=== PATIENT | female | born 1990 | race Caucasian/White ===

== ENCOUNTER 2019-04-02 12:59 | Inpatient (IN) ==
[2019-04-02] MEDS ORDERED: GLUCAGON 1 MG VIAL IM PRN (15:17)
[2019-04-02] MEDS ORDERED: AMPICILLIN INJ 2,000 MG in SODIUM CHLORIDE 0.9% 100 ML IV ONE (15:19)
[2019-04-02] MEDS: LACTATED RINGERS 1,000 ML IV SCH ×2 (15:35→18:46)
[2019-04-02 15:48] LABS: Basophils % 0.1 % (0.0-0.8); Eosinophils # 0.1 10*3/uL (0.0-0.87); Eosinophils % 0.8 % (0.00-10.9); Hematocrit 31.1 VOL% (35.7-47.0); Hemoglobin 9.9 GM/DL (12.0-16.0); Immature Granulocytes % 1.9 %; Immature Granulocytes Absolute 0.25 #; Lymphocytes # 2.1 10*3/uL (1.4-4.0); Mean Corpuscular HGB Conc 31.8 GM/DL (32-36); Mean Corpuscular Volume 83.8 FL (87-102); Mean Platelet Volume 10.9 FL (9.6-12.0); Monocytes % 7.5 % (1.7-12.7); Neutrophils % 73.7 % (38.7-73.9); Platelet Count 305 T/CUMM (130-400); Red Blood Count 3.71 MC/CUMM (3.8-5.5); Red Cell Distribution Width 14.9 % (9.3-17.3)
[2019-04-02 15:55] LABS: Albumin 3.2 G/DL (3.4-5.0); Bilirubin,Total 0.4 MG/DL (0.2-1.0); Calcium 8.8 MG/DL (8.5-10.1); Osmolality,Calculated 272.7 MOS/KG (273-304); Total Protein 7.3 G/DL (6.4-8.3)
[2019-04-02] MEDS ORDERED: TERBUTALINE 1 MG/1 ML VIAL SUBCUT ONE (16:14)
[2019-04-02] MEDS: ACETAMINOPHEN 325 MG TABLET PO PRN (17:56)
[2019-04-02] MEDS: ONDANSETRON 4 MG/2 ML VIAL IV PRN (17:58)
[2019-04-02] MEDS: BUTORPHANOL 2 MG/ML VIAL IV PRN ×2 (18:05→21:19)
[2019-04-02] MEDS ORDERED: GENTAMICIN INJ 160 MG in SODIUM CHLORIDE 0.9% 100 ML IV ONE (20:00)
[2019-04-02] MEDS: AMPICILLIN INJ 1,000 MG in SODIUM CHLORIDE 0.9% 100 ML IV SCH ×2 (20:00→23:45)
[2019-04-03] MEDS: ONDANSETRON 4 MG/2 ML VIAL IV PRN ×3 (03:12→17:34)
[2019-04-03] MEDS: BUTORPHANOL 2 MG/ML VIAL IV PRN ×3 (03:12→11:07)
[2019-04-03] MEDS: LACTATED RINGERS 1,000 ML IV SCH ×4 (03:34→17:55)
[2019-04-03] MEDS: AMPICILLIN INJ 1,000 MG in SODIUM CHLORIDE 0.9% 100 ML IV SCH ×5 (03:52→19:43)
[2019-04-03] MEDS ORDERED: OXYTOCIN/LR 20 UNIT/1,000 ML BAG IV SCH (04:30)
[2019-04-03] MEDS: GENTAMICIN INJ 110 MG in SODIUM CHLORIDE 0.9% 100 ML IV SCH ×3 (04:36→20:43)
[2019-04-03] MEDS ORDERED: ePHEDrine 50 MG/ML AMP IV PRN (12:40)
[2019-04-03] MEDS ORDERED: CITRIC ACID/SODIUM CITRATE 30 ML UDCUP PO ONE (12:40)
[2019-04-03] MEDS ORDERED: FAMOTIDINE 20 MG/2 ML VIAL IV ONE (12:40)
[2019-04-03] MEDS ORDERED: LACTATED RINGERS 1,000 ML IV ONE (12:40)
[2019-04-03] MEDS ORDERED: diphenhydrAMINE 50 MG/1 ML VIAL IV PRN ×2 (12:42)
[2019-04-03] MEDS ORDERED: NALOXONE 0.4 MG/ML VIAL IV PRN (12:42)
[2019-04-03] MEDS ORDERED: hydrOXYzine HCL 25 MG/1 ML VIAL IM PRN (12:42)
[2019-04-03] MEDS ORDERED: PROMETHAZINE 25 MG/1 ML VIAL IM ONE (12:42)
[2019-04-03] MEDS: fentaNYL 2 MCG/ROPIV 0.2% EPID 100 ML EPIDURAL SCH ×3 (14:14→23:35)
[2019-04-03 15:29] LABS: Apearance,Urine CLEAR (Clear); Bilirubin,Urine Negative (Negative); Blood, Urine Negative (Negative); Glucose,Urine (UA) Negative (Negative); Ketones,Urine Negative (Negative); Mucus,Urine Occasional /LPF (Occasional); Nitrite,Urine Negative (Negative); Protein,Urine Negative; Urine Color Straw (Yellow); Urine Specific Gravity 1.008 (1.001-1.035); Urine Urobilinogen < 2.0 EU/DL (0.2-1.0)
[2019-04-03] MEDS ORDERED: METHYLERGONOVINE 0.2 MG/1 ML AMP ONE (21:56)
[2019-04-03] MEDS ORDERED: TRANEXAMIC ACID 1,000 MG/10 ML VIAL ONE (21:56)
[2019-04-03] MEDS ORDERED: miSOPROStoL 200 MCG TABLET ONE (21:56)
[2019-04-03] MEDS ORDERED: OXYTOCIN/LR 20 UNIT/1,000 ML BAG IV ONE (21:56)
[2019-04-03] MEDS ORDERED: CARBOPROST TROMETHAMINE 250 MCG/ML AMP IM ONE (21:57)
[2019-04-03] MEDS ORDERED: BISACODYL 10 MG SUPP RECTAL PRN (22:50)
[2019-04-03] MEDS ORDERED: BENZOCAINE 20%/MENTHOL 0.5% SPRAY 56 GM CAN TOP PRN (22:50)
[2019-04-03] MEDS ORDERED: HYDROCORTISONE 2.5% RECTAL CREAM 30 GM TUBE TOP PRN (22:50)
[2019-04-03] MEDS ORDERED: LANOLIN 50% CREAM 0.3 OZ TUBE TOP PRN (22:50)
[2019-04-03] MEDS ORDERED: WITCH HAZEL PADS 100/JAR TOP PRN (22:50)
[2019-04-03] MEDS ORDERED: ACETAMINOPHEN/CODEINE 300-30 MG TABLET PO PRN (22:52)
[2019-04-03] MEDS: IBUPROFEN 800 MG TABLET PO PRN (23:24)
[2019-04-04] MEDS: BUTORPHANOL 2 MG/ML VIAL IV PRN (00:07)
[2019-04-04] MEDS: ONDANSETRON 4 MG/2 ML VIAL IV PRN (00:13)
[2019-04-04 00:45] LABS: Basophils % 0.2 % (0.0-0.8); Eosinophils # 0.1 10*3/uL (0.0-0.87); Eosinophils % 0.2 % (0.00-10.9); Hematocrit 23.2 VOL% (35.7-47.0); Hemoglobin 7.2 GM/DL (12.0-16.0); Immature Granulocytes % 1.4 %; Immature Granulocytes Absolute 0.31 #; Lymphocytes # 4.7 10*3/uL (1.4-4.0); Lymphocytes % 20.3 % (21.3-54.2); Mean Corpuscular Volume 85.3 FL (87-102); Mean Platelet Volume 11.2 FL (9.6-12.0); Neutrophils % 70.9 % (38.7-73.9); Platelet Count 320 T/CUMM (130-400); Red Blood Count 2.72 MC/CUMM (3.8-5.5); White Blood Count 22.9 T/CUMM (4-12)
[2019-04-04] MEDS ORDERED: SODIUM CHLORIDE 0.9% 1,000 ML IV PRN ×5 (01:09→10:19)
[2019-04-04] MEDS: LACTATED RINGERS 1,000 ML IV SCH ×4 (03:08→21:07)
[2019-04-04] MEDS ORDERED: SEVOFLURANE 1 UNIT/15 MINUTE INH ONE ×2 (03:17→08:50)
[2019-04-04] MEDS ORDERED: LIDOCAINE 2% 5 ML VIAL ONE (03:17)
[2019-04-04] MEDS ORDERED: PROPOFOL 200 MG/20 ML VIAL IV ONE (03:17)
[2019-04-04] MEDS ORDERED: MIDAZOLAM 2 MG/2 ML VIAL ONE ×2 (03:18→11:47)
[2019-04-04] MEDS ORDERED: PHENYLEPHRINE 10 MG/1 ML VIAL IV ONE (03:18)
[2019-04-04] MEDS ORDERED: fentaNYL 100 MCG/2 ML VIAL ONE ×2 (03:18→08:51)
[2019-04-04] MEDS ORDERED: ETOMIDATE 40 MG/20 ML VIAL IV ONE (03:18)
[2019-04-04] MEDS ORDERED: MIDAZOLAM 10 MG/2 ML VIAL ONE ×4 (03:18→12:24)
[2019-04-04] MEDS ORDERED: ROCURONIUM 100 MG/10 ML VIAL IV ONE ×3 (03:19→12:24)
[2019-04-04] MEDS ORDERED: SODIUM CHLORIDE 0.9% 1,000 ML IV ONE ×3 (03:19→12:27)
[2019-04-04] MEDS ORDERED: SUCCINYLCHOLINE 200 MG/10 ML VIAL ONE (03:19)
[2019-04-04] MEDS ORDERED: PHENYLEPHRINE 1 MG/10 ML SYRINGE IV ONE ×2 (03:19→08:51)
[2019-04-04] MEDS ORDERED: SODIUM CHLORIDE 0.9% 250 ML IV ONE (03:19)
[2019-04-04 03:30] LABS: Lymphocytes 15 % (20-55); Platelet Estimate Normal; Polychromasia Few; Segmented Neutrophils 80 % (50-85); Total Cells Counted 100
[2019-04-04 03:37] LABS: Basophils % 0.2 % (0.0-0.8); Eosinophils % 0.1 % (0.00-10.9); Hematocrit 28.1 VOL% (35.7-47.0); Hemoglobin 9.1 GM/DL (12.0-16.0); Immature Granulocytes % 1.5 %; Immature Granulocytes Absolute 0.29 #; Lymphocytes # 1.1 10*3/uL (1.4-4.0); Lymphocytes % 5.6 % (21.3-54.2); Mean Corpuscular HGB Conc 32.4 GM/DL (32-36); Mean Corpuscular Volume 88.4 FL (87-102); Mean Platelet Volume 10.5 FL (9.6-12.0); Monocytes % 7.1 % (1.7-12.7); Neutrophils % 85.5 % (38.7-73.9); Platelet Count 129 T/CUMM (130-400); Red Blood Count 3.18 MC/CUMM (3.8-5.5); Red Cell Distribution Width 15.3 % (9.3-17.3); White Blood Count 19.7 T/CUMM (4-12)
[2019-04-04] MEDS: PROPOFOL 1,000 MG/100 ML BOTTLE IV SCH ×4 (03:45→23:12)
[2019-04-04 03:46] LABS: ABG Base Excess -3.7 MMOL/L (-2.5-2.5); ABG HCO3 21.3 MMOL/L (20-26); ABG PCO2 34.4 MM HG (35-48); ABG PH 7.386 (7.35-7.45)
[2019-04-04] MEDS ORDERED: HEPARIN/NACL 0.9% 2 UNITS/ML 2,000 ML IV ONE (03:50)
[2019-04-04 03:52] LABS: Calcium 6.7 MG/DL (8.5-10.1); Osmolality,Calculated 277.4 MOS/KG (273-304)
[2019-04-04 03:56] LABS: PT Patient Result 11.1 SECS (9.6-12.2); Partial Thromboplastin Time 30.3 SECS (20.8-36.0)
[2019-04-04] MEDS ORDERED: fentaNYL 100 MCG/2 ML VIAL IV ONE (04:46)
[2019-04-04] MEDS ORDERED: HEPARIN/NACL 0.9% 2 UNITS/ML 1,000 ML IV ONE (05:51)
[2019-04-04] MEDS: OXYTOCIN/LR 20 UNIT/1,000 ML BAG IV ONE ×2 (06:52→15:16)
[2019-04-04] MEDS ORDERED: AMPICILLIN INJ 1,000 MG in SODIUM CHLORIDE 0.9% 100 ML IV ONE (06:55)
[2019-04-04] MEDS ORDERED: MAGNESIUM SULF RIDER 100 ML IV ONE (07:08)
[2019-04-04] MEDS ORDERED: AMPICILLIN 1,000 MG VIAL ONE (07:12)
[2019-04-04 07:27] LABS: Basophils % 0.2 % (0.0-0.8); Eosinophils % 0.1 % (0.00-10.9); Hemoglobin 8.8 GM/DL (12.0-16.0); Immature Granulocytes % 1.1 %; Immature Granulocytes Absolute 0.17 #; Lymphocytes # 1.4 10*3/uL (1.4-4.0); Lymphocytes % 8.6 % (21.3-54.2); Mean Corpuscular HGB Conc 32.6 GM/DL (32-36); Mean Corpuscular Volume 87.4 FL (87-102); Mean Platelet Volume 10.3 FL (9.6-12.0); Monocytes % 6.9 % (1.7-12.7); Neutrophils % 83.1 % (38.7-73.9); Platelet Count 160 T/CUMM (130-400); Red Blood Count 3.09 MC/CUMM (3.8-5.5); Red Cell Distribution Width 15.1 % (9.3-17.3); White Blood Count 15.7 T/CUMM (4-12)
[2019-04-04] MEDS ORDERED: GENTAMICIN INJ 110 MG in SODIUM CHLORIDE 0.9% 100 ML IV ONE (07:30)
[2019-04-04 07:41] LABS: Calcium 9.4 MG/DL (8.5-10.1)
[2019-04-04] MEDS ORDERED: INFLUENZA VIRUS VACCINE 0.5 ML SYRINGE IM ONE (08:00)
[2019-04-04] MEDS ORDERED: PHENYLEPHRINE DRIP 20 MG/250 ML PREMIX IV ONE (08:50)
[2019-04-04] MEDS ORDERED: KETAMINE 500 MG/10 ML VIAL ONE ×2 (08:50→12:24)
[2019-04-04] MEDS ORDERED: CALCIUM CHLORIDE 1,000 MG/10 ML VIAL IV ONE ×3 (08:50→10:52)
[2019-04-04] MEDS ORDERED: ACETAMINOPHEN 1,000 MG/100 ML VIAL IV ONE (08:51)
[2019-04-04] MEDS ORDERED: LACTATED RINGERS 1,000 ML IV ONE ×2 (08:51→12:27)
[2019-04-04] MEDS ORDERED: CALCIUM GLUCONATE 1,000 MG in SODIUM CHLORIDE 0.9% 100 ML IV ONE (09:30)
[2019-04-04] MEDS ORDERED: KETOROLAC 30 MG/1 ML VIAL IV ONE ×2 (09:44→15:30)
[2019-04-04] MEDS ORDERED: ALBUMIN 25% 12.5 GM in PREMIX 1 EACH IV STA (09:50)
[2019-04-04] MEDS ORDERED: ALBUMIN 5% 12.5 GM/250 ML VIAL IV ONE (09:50)
[2019-04-04] MEDS ORDERED: VECURONIUM 10 MG VIAL IV ONE ×2 (09:54→09:55)
[2019-04-04] MEDS ORDERED: MIDAZOLAM 10 MG/2 ML VIAL IV ONE (09:55)
[2019-04-04] MEDS ORDERED: TRANEXAMIC ACID 1,000 MG/10 ML VIAL ONE ×2 (10:11→10:53)
[2019-04-04] MEDS ORDERED: MICROFIBRILLAR COLLAGEN POWDER 1 GM CAN TOP ONE (10:17)
[2019-04-04 10:19] LABS: ABG Base Excess -7.1 MMOL/L (-2.5-2.5); ABG HCO3 18.5 MMOL/L (20-26); ABG Oxygen Saturation 99.8 % (95-100); ABG PCO2 39.3 MM HG (35-48); ABG PH 7.289 (7.35-7.45); ABG TCO2 18.3 MMOL/L (23-27); Glucose Heart Surgery 144 MG/DL (74-106); PCO2 Patient Temp Arterial 39.3 MMHG; PH Patient Temp Arterial 7.289; Patient Temperature 37 CELCIUS; Potassium Heart/CVR 3.1 MMOL/L (3.5-5.1); Sodium Heart/CVR 138 MMOL/L (135-145)
[2019-04-04 10:20] LABS: Hemoglobin Heart Surgery 5.5 G/DL (12.0-16.0)
[2019-04-04 10:21] LABS: Hematocrit Heart Surgery 17.5 PERCENT (37-47)
[2019-04-04 10:28] LABS: Hematocrit 16.5 VOL% (35.7-47.0); Hemoglobin 5.3 GM/DL (12.0-16.0)
[2019-04-04 10:40] LABS: INR 1.1; PT Patient Result 12.3 SECS (9.6-12.2)
[2019-04-04 10:47] LABS: Partial Thromboplastin Time 43.9 SECS (20.8-36.0)
[2019-04-04] MEDS ORDERED: FAMOTIDINE 20 MG/2 ML VIAL IV ONE (10:47)
[2019-04-04] MEDS ORDERED: SODIUM BICARBONATE 50 MEQ/50 ML VIAL IV ONE (10:52)
[2019-04-04 11:09] LABS: ABG Base Excess -2.2 MMOL/L (-2.5-2.5); ABG HCO3 23.2 MMOL/L (20-26); ABG Oxygen Saturation 98.6 % (95-100); ABG PCO2 42.6 MM HG (35-48); ABG PH 7.354 (7.35-7.45); ABG PO2 484.6 MM HG (80-95); ABG TCO2 24.5 MMOL/L (23-27)
[2019-04-04 11:10] LABS: Hematocrit 23.5 VOL% (35.7-47.0); Hemoglobin 7.8 GM/DL (12.0-16.0)
[2019-04-04 11:20] LABS: INR 1.2; PT Patient Result 12.9 SECS (9.6-12.2); Partial Thromboplastin Time 29.4 SECS (20.8-36.0)
[2019-04-04] MEDS ORDERED: LORazepam 2 MG/1 ML VIAL ONE (11:48)
[2019-04-04] MEDS ORDERED: MIDAZOLAM 2 MG/2 ML VIAL IV ONE (12:00)
[2019-04-04] MEDS ORDERED: LORazepam 2 MG/1 ML VIAL IV ONE (12:00)
[2019-04-04] MEDS: HYDROmorphone 2 MG/1 ML VIAL IV PRN ×5 (13:25→19:36)
[2019-04-04] MEDS: DOCUSATE SODIUM 100 MG CAPSULE PO SCH ×2 (14:13→21:07)
[2019-04-04] MEDS: FERROUS SULFATE 325 MG TABLET PO SCH (14:14)
[2019-04-04] MEDS: MULTIVITAMIN (PRENATAL) TABLET PO SCH (14:14)
[2019-04-04] MEDS: CISATRACURIUM 200 MG in SODIUM CHLORIDE 0.9% 180 ML IV SCH (15:51)
[2019-04-04] MEDS ORDERED: cefTRIAXone 1,000 MG in SYRINGE 1 EACH IV ONE (16:01)
[2019-04-04 20:02] LABS: Hematocrit 23.7 VOL% (35.7-47.0); Hemoglobin 8.4 GM/DL (12.0-16.0)
[2019-04-04 20:23] LABS: Calcium 8.3 MG/DL (8.5-10.1); Osmolality,Calculated 276.3 MOS/KG (273-304)
[2019-04-04] MEDS ORDERED: MAGNESIUM SULF RIDER 2 GM in PREMIX 1 EACH IV PRN (20:33)
[2019-04-04] MEDS ORDERED: POTASSIUM CHLORIDE RIDER 10 MEQ in PREMIX 1 EACH IV PRN (20:33)
[2019-04-04] MEDS ORDERED: POTASSIUM CHLORIDE RIDER 200 ML IV ONE (21:32)
[2019-04-04] MEDS: KETOROLAC 15 MG/1 ML VIAL IV SCH (21:45)
[2019-04-04] MEDS: MAGNESIUM SULF RIDER 4 GM in PREMIX 1 EACH IV PRN (21:48)
[2019-04-04] MEDS: POTASSIUM CHLORIDE RIDER 20 MEQ in PREMIX 1 EACH IV PRN ×2 (21:48→22:33)
[2019-04-04] MEDS: MORPHINE 4 MG/1 ML VIAL IV PRN (23:05)
[2019-04-05] MEDS: HYDROmorphone 2 MG/1 ML VIAL IV PRN ×10 (00:56→22:52)
[2019-04-05 01:40] LABS: Basophils % 0.1 % (0.0-0.8); Eosinophils % 0.3 % (0.00-10.9); Hematocrit 22.8 VOL% (35.7-47.0); Hemoglobin 7.8 GM/DL (12.0-16.0); Immature Granulocytes % 0.7 %; Immature Granulocytes Absolute 0.07 #; Lymphocytes # 1.3 10*3/uL (1.4-4.0); Lymphocytes % 12.2 % (21.3-54.2); Mean Corpuscular HGB Conc 34.2 GM/DL (32-36); Mean Corpuscular Volume 87.4 FL (87-102); Mean Platelet Volume 10.1 FL (9.6-12.0); Monocytes % 6.8 % (1.7-12.7); Neutrophils % 79.9 % (38.7-73.9); Platelet Count 178 T/CUMM (130-400); Red Blood Count 2.61 MC/CUMM (3.8-5.5); Red Cell Distribution Width 15.4 % (9.3-17.3); White Blood Count 10.6 T/CUMM (4-12)
[2019-04-05 01:56] LABS: Bilirubin,Total 0.4 MG/DL (0.2-1.0); Calcium 7.6 MG/DL (8.5-10.1); Total Protein 4.4 G/DL (6.4-8.3)
[2019-04-05] MEDS: MORPHINE 4 MG/1 ML VIAL IV PRN ×3 (02:27→19:45)
[2019-04-05] MEDS: PROPOFOL 1,000 MG/100 ML BOTTLE IV SCH ×5 (03:11→19:31)
[2019-04-05] MEDS: LACTATED RINGERS 1,000 ML IV SCH ×4 (03:18→23:20)
[2019-04-05 03:40] LABS: ABG Base Excess 0.8 MMOL/L (-2.5-2.5); ABG HCO3 23.9 MMOL/L (20-26); ABG Oxygen Saturation 98.3 % (95-100); ABG PCO2 31.9 MM HG (35-48); ABG PH 7.492 (7.35-7.45); ABG PO2 147.8 MM HG (80-95); ABG TCO2 24.9 MMOL/L (23-27)
[2019-04-05 03:58] LABS: INR 0.9
[2019-04-05] MEDS: KETOROLAC 15 MG/1 ML VIAL IV SCH ×4 (04:06→22:50)
[2019-04-05] MEDS: DEXTROSE 10% 250 ML BAG IV PRN ×2 (07:06→09:47)
[2019-04-05] MEDS: fentaNYL INJ 1,250 MCG in SODIUM CHLORIDE 0.9% 225 ML IV PRN ×2 (08:11→22:00)
[2019-04-05] MEDS ORDERED: ceFAZolin 1,000 MG VIAL ONE (11:08)
[2019-04-05 11:26] LABS: Hematocrit 27.1 VOL% (35.7-47.0); Hemoglobin 9.4 GM/DL (12.0-16.0)
[2019-04-05] MEDS ORDERED: ROCURONIUM 100 MG/10 ML VIAL IV ONE (12:52)
[2019-04-05] MEDS ORDERED: fentaNYL 100 MCG/2 ML VIAL ONE (12:52)
[2019-04-05] MEDS ORDERED: MIDAZOLAM 10 MG/2 ML VIAL ONE (12:52)
[2019-04-05] MEDS ORDERED: SEVOFLURANE 1 UNIT/15 MINUTE INH ONE (12:52)
[2019-04-05] MEDS ORDERED: LACTATED RINGERS 1,000 ML IV ONE (12:53)
[2019-04-05] MEDS ORDERED: SODIUM CHLORIDE 0.9% 1,000 ML IV ONE (12:53)
[2019-04-05] MEDS ORDERED: cefOXitin 2,000 MG in SYRINGE 1 EACH IV ONE (13:00)
[2019-04-05] MEDS: MULTIVITAMIN (PRENATAL) TABLET PO SCH (13:01)
[2019-04-05] MEDS: FERROUS SULFATE 325 MG TABLET PO SCH (13:01)
[2019-04-05] MEDS: DOCUSATE SODIUM 100 MG CAPSULE PO SCH ×2 (13:01→21:11)
[2019-04-05 17:26] LABS: Hematocrit 29.5 VOL% (35.7-47.0); Hemoglobin 10.2 GM/DL (12.0-16.0)
[2019-04-05] MEDS: CISATRACURIUM 200 MG in SODIUM CHLORIDE 0.9% 180 ML IV SCH (19:33)
[2019-04-05 23:41] LABS: Hematocrit 28.3 VOL% (35.7-47.0); Hemoglobin 9.8 GM/DL (12.0-16.0)
[2019-04-06] MEDS: PROPOFOL 1,000 MG/100 ML BOTTLE IV SCH ×2 (04:00)
[2019-04-06 04:17] LABS: ABG Base Excess 0.5 MMOL/L (-2.5-2.5); ABG HCO3 24.9 MMOL/L (20-26); ABG Oxygen Saturation 99.1 % (95-100); ABG PCO2 31.5 MM HG (35-48); ABG PH 7.475 (7.35-7.45); ABG TCO2 19.9 MMOL/L (23-27)
[2019-04-06 04:32] LABS: Basophils % 0.1 % (0.0-0.8); Eosinophils # 0.1 10*3/uL (0.0-0.87); Eosinophils % 1.1 % (0.00-10.9); Hematocrit 27.6 VOL% (35.7-47.0); Hemoglobin 9.4 GM/DL (12.0-16.0); Immature Granulocytes % 0.6 %; Immature Granulocytes Absolute 0.07 #; Lymphocytes # 1.2 10*3/uL (1.4-4.0); Lymphocytes % 10.3 % (21.3-54.2); Mean Corpuscular HGB Conc 34.1 GM/DL (32-36); Mean Corpuscular Volume 88.7 FL (87-102); Mean Platelet Volume 10.5 FL (9.6-12.0); Monocytes % 4.8 % (1.7-12.7); Neutrophils % 83.1 % (38.7-73.9); Platelet Count 152 T/CUMM (130-400); Red Blood Count 3.11 MC/CUMM (3.8-5.5); Red Cell Distribution Width 16.2 % (9.3-17.3); White Blood Count 11.3 T/CUMM (4-12)
[2019-04-06 04:45] LABS: Osmolality,Calculated 278.1 MOS/KG (273-304)
[2019-04-06] MEDS: KETOROLAC 15 MG/1 ML VIAL IV SCH ×4 (04:48→22:25)
[2019-04-06] MEDS: DEXTROSE 10% 250 ML BAG IV PRN ×2 (05:31→08:07)
[2019-04-06] MEDS: MAGNESIUM SULF RIDER 4 GM in PREMIX 1 EACH IV PRN (05:47)
[2019-04-06] MEDS: POTASSIUM CHLORIDE RIDER 20 MEQ in PREMIX 1 EACH IV PRN (05:48)
[2019-04-06] MEDS: DEXTROSE 5% LACTATED RINGERS 1,000 ML IV SCH ×2 (07:50→17:27)
[2019-04-06] MEDS: MORPHINE 4 MG/1 ML VIAL IV PRN (07:55)
[2019-04-06] MEDS: LACTATED RINGERS 1,000 ML IV SCH (08:09)
[2019-04-06] MEDS: DOCUSATE SODIUM 100 MG CAPSULE PO SCH ×2 (08:49→22:24)
[2019-04-06] MEDS: FERROUS SULFATE 325 MG TABLET PO SCH (08:50)
[2019-04-06] MEDS: HYDROmorphone 2 MG/1 ML VIAL IV PRN ×6 (08:53→22:05)
[2019-04-06] MEDS: MULTIVITAMIN (PRENATAL) TABLET PO SCH (12:52)
[2019-04-06 13:57] LABS: Hematocrit 30.2 VOL% (35.7-47.0); Hemoglobin 10.1 GM/DL (12.0-16.0)
[2019-04-06] MEDS ORDERED: FUROSEMIDE 40 MG/4 ML VIAL IV ONE (14:29)
[2019-04-06] MEDS ORDERED: HYDROmorphone PCA 30 MG/30 ML SYRINGE IV ONE (15:14)
[2019-04-06] MEDS: SIMETHICONE CHEW 80 MG TABLET PO PRN ×2 (15:25→20:54)
[2019-04-06] MEDS: HYDROmorphone PCA 30 MG/30 ML SYRINGE IV SCH (16:02)
[2019-04-07] MEDS: HYDROmorphone 2 MG/1 ML VIAL IV PRN ×3 (01:25→15:15)
[2019-04-07] MEDS: KETOROLAC 15 MG/1 ML VIAL IV SCH ×4 (04:25→21:15)
[2019-04-07 04:43] LABS: Basophils % 0.2 % (0.0-0.8); Eosinophils # 0.2 10*3/uL (0.0-0.87); Eosinophils % 2.3 % (0.00-10.9); Hematocrit 28.2 VOL% (35.7-47.0); Hemoglobin 9.1 GM/DL (12.0-16.0); Immature Granulocytes % 0.6 %; Immature Granulocytes Absolute 0.05 #; Lymphocytes # 1.1 10*3/uL (1.4-4.0); Lymphocytes % 11.8 % (21.3-54.2); Mean Corpuscular HGB Conc 32.3 GM/DL (32-36); Mean Corpuscular Volume 91.9 FL (87-102); Mean Platelet Volume 10.7 FL (9.6-12.0); Monocytes % 6.8 % (1.7-12.7); Neutrophils % 78.3 % (38.7-73.9); Platelet Count 138 T/CUMM (130-400); Red Blood Count 3.07 MC/CUMM (3.8-5.5); Red Cell Distribution Width 15.7 % (9.3-17.3)
[2019-04-07 05:16] LABS: Calcium 8.3 MG/DL (8.5-10.1); Osmolality,Calculated 283.3 MOS/KG (273-304)
[2019-04-07] MEDS: DEXTROSE 5% LACTATED RINGERS 1,000 ML IV SCH ×2 (05:55→21:28)
[2019-04-07] MEDS: POTASSIUM CHLORIDE RIDER 20 MEQ in PREMIX 1 EACH IV PRN (05:55)
[2019-04-07] MEDS: DOCUSATE SODIUM 100 MG CAPSULE PO SCH ×2 (08:14→23:31)
[2019-04-07] MEDS: FERROUS SULFATE 325 MG TABLET PO SCH (08:14)
[2019-04-07] MEDS: MULTIVITAMIN (PRENATAL) TABLET PO SCH (08:19)
[2019-04-07] MEDS: ONDANSETRON 4 MG/2 ML VIAL IV PRN ×3 (12:24→19:38)
[2019-04-07] MEDS: SIMETHICONE CHEW 80 MG TABLET PO PRN ×2 (13:25→20:26)
[2019-04-07] MEDS: HYDROmorphone PCA 30 MG/30 ML SYRINGE IV SCH (15:30)
[2019-04-07] MEDS ORDERED: ONDANSETRON 4 MG/2 ML VIAL ONE (19:35)
[2019-04-07] MEDS: ACETAMINOPHEN 325 MG TABLET PO PRN (20:26)
[2019-04-07] MEDS ORDERED: METOCLOPRAMIDE 10 MG TABLET PO SCH (21:00)
[2019-04-07] MEDS: PROMETHAZINE 25 MG/1 ML VIAL IM PRN (21:13)
[2019-04-07] MEDS: MAGNESIUM HYDROXIDE SUSP 30 ML UDCUP PO SCH (23:31)
[2019-04-07] MEDS: METOCLOPRAMIDE 10 MG/2 ML VIAL IV SCH (23:37)
[2019-04-08] MEDS: ONDANSETRON 4 MG/2 ML VIAL IV PRN ×2 (02:52→09:36)
[2019-04-08] MEDS: KETOROLAC 15 MG/1 ML VIAL IV SCH ×4 (02:57→22:23)
[2019-04-08] MEDS: PANTOPRAZOLE 40 MG VIAL IV SCH ×2 (03:08→15:43)
[2019-04-08] MEDS ORDERED: ACETAMINOPHEN 500 MG TABLET PO ONE (03:40)
[2019-04-08] MEDS ORDERED: ACETAMINOPHEN 500 MG TABLET ONE (03:42)
[2019-04-08] MEDS: PROMETHAZINE 25 MG/1 ML VIAL IM PRN ×3 (03:57→21:22)
[2019-04-08] MEDS: METOCLOPRAMIDE 10 MG/2 ML VIAL IV SCH ×2 (09:23→15:46)
[2019-04-08] MEDS: MAGNESIUM HYDROXIDE SUSP 30 ML UDCUP PO SCH ×2 (09:24→21:34)
[2019-04-08] MEDS: FERROUS SULFATE 325 MG TABLET PO SCH (09:24)
[2019-04-08] MEDS: DOCUSATE SODIUM 100 MG CAPSULE PO SCH ×2 (09:24→21:34)
[2019-04-08] MEDS: MULTIVITAMIN (PRENATAL) TABLET PO SCH (09:24)
[2019-04-08] MEDS: DEXTROSE 5% LACTATED RINGERS 1,000 ML IV SCH (10:50)
[2019-04-08 13:13] LABS: Basophils % 0.2 % (0.0-0.8); Eosinophils # 0.2 10*3/uL (0.0-0.87); Eosinophils % 1.4 % (0.00-10.9); Hematocrit 36.2 VOL% (35.7-47.0); Hemoglobin 11.8 GM/DL (12.0-16.0); Immature Granulocytes % 0.6 %; Immature Granulocytes Absolute 0.07 #; Lymphocytes # 1.1 10*3/uL (1.4-4.0); Lymphocytes % 9.5 % (21.3-54.2); Mean Corpuscular HGB Conc 32.6 GM/DL (32-36); Mean Corpuscular Volume 91.4 FL (87-102); Mean Platelet Volume 9.7 FL (9.6-12.0); Monocytes % 9.5 % (1.7-12.7); Neutrophils % 78.8 % (38.7-73.9); Platelet Count 178 T/CUMM (130-400); Red Blood Count 3.96 MC/CUMM (3.8-5.5); Red Cell Distribution Width 14.2 % (9.3-17.3); White Blood Count 11.5 T/CUMM (4-12)
[2019-04-08 13:43] LABS: Albumin 2.2 G/DL (3.4-5.0); Calcium 8.8 MG/DL (8.5-10.1); Osmolality,Calculated 276.4 MOS/KG (273-304); Total Protein 6.1 G/DL (6.4-8.3)
[2019-04-08] MEDS: SIMETHICONE CHEW 80 MG TABLET PO PRN ×2 (15:40→21:33)
[2019-04-08] MEDS: MEPERIDINE 25 MG/1 ML VIAL IM PRN ×2 (17:16→20:53)
[2019-04-09] MEDS: METOCLOPRAMIDE 10 MG/2 ML VIAL IV SCH ×2 (00:05→16:54)
[2019-04-09] MEDS: MEPERIDINE 25 MG/1 ML VIAL IM PRN ×4 (00:58→19:11)
[2019-04-09] MEDS: KETOROLAC 15 MG/1 ML VIAL IV SCH ×2 (05:20→10:08)
[2019-04-09 06:16] LABS: Basophils % 0.2 % (0.0-0.8); Eosinophils # 0.1 10*3/uL (0.0-0.87); Eosinophils % 0.5 % (0.00-10.9); Hematocrit 31.6 VOL% (35.7-47.0); Hemoglobin 10.4 GM/DL (12.0-16.0); Immature Granulocytes % 0.7 %; Immature Granulocytes Absolute 0.08 #; Lymphocytes # 0.9 10*3/uL (1.4-4.0); Lymphocytes % 8.5 % (21.3-54.2); Mean Corpuscular HGB Conc 32.9 GM/DL (32-36); Mean Corpuscular Volume 89.8 FL (87-102); Mean Platelet Volume 9.9 FL (9.6-12.0); Monocytes % 9.7 % (1.7-12.7); Neutrophils % 80.4 % (38.7-73.9); Platelet Count 184 T/CUMM (130-400); Red Blood Count 3.52 MC/CUMM (3.8-5.5); Red Cell Distribution Width 14.1 % (9.3-17.3); White Blood Count 10.7 T/CUMM (4-12)
[2019-04-09] MEDS: SIMETHICONE CHEW 80 MG TABLET PO PRN ×2 (15:30→22:08)
[2019-04-09] MEDS ORDERED: SODIUM PHOSPHATE ENEMA 133 ML BOTTLE RECTAL ONE (16:08)
[2019-04-09] MEDS: FERROUS SULFATE 325 MG TABLET PO SCH (16:54)
[2019-04-09] MEDS: MAGNESIUM HYDROXIDE SUSP 30 ML UDCUP PO SCH ×2 (16:54→22:06)
[2019-04-09] MEDS: DOCUSATE SODIUM 100 MG CAPSULE PO SCH ×2 (16:54→22:06)
[2019-04-09] MEDS: MULTIVITAMIN (PRENATAL) TABLET PO SCH (16:54)
[2019-04-09] MEDS: ONDANSETRON 4 MG/2 ML VIAL IV PRN ×2 (16:59→19:35)
[2019-04-09] MEDS: PANTOPRAZOLE 40 MG VIAL IV SCH (17:27)
[2019-04-09] MEDS ORDERED: ONDANSETRON 4 MG/2 ML VIAL IV PRN (19:28)
[2019-04-09] MEDS: IBUPROFEN 800 MG TABLET PO PRN (22:07)
[2019-04-09] MEDS: oxyCODONE/ACETAMINOPHEN 5-325 MG TABLET PO PRN (22:39)
[2019-04-10] MEDS: PANTOPRAZOLE 40 MG VIAL IV SCH ×3 (04:44→16:44)
[2019-04-10] MEDS ORDERED: ONDANSETRON 4 MG TABLET PO PRN (04:46)
[2019-04-10] MEDS: IBUPROFEN 800 MG TABLET PO PRN (05:19)
[2019-04-10] MEDS: oxyCODONE/ACETAMINOPHEN 5-325 MG TABLET PO PRN ×2 (05:21→11:24)
[2019-04-10] MEDS: SIMETHICONE CHEW 80 MG TABLET PO PRN ×2 (05:22→11:31)
[2019-04-10 11:16] VITALS: BP 125/70
[2019-04-10] MEDS: MEPERIDINE 25 MG/1 ML VIAL IM PRN (12:26)
[2019-04-10 13:15] LABS: Hematocrit 34.7 VOL% (35.7-47.0); Hemoglobin 11.6 GM/DL (12.0-16.0)
[2019-04-10] MEDS: MULTIVITAMIN (PRENATAL) TABLET PO SCH (14:36)
[2019-04-10] MEDS: DOCUSATE SODIUM 100 MG CAPSULE PO SCH (14:36)
[2019-04-10] MEDS: FERROUS SULFATE 325 MG TABLET PO SCH (14:36)
[2019-04-10] MEDS: MAGNESIUM HYDROXIDE SUSP 30 ML UDCUP PO SCH (14:36)
== END 2019-04-10 16:45 | disposition home or self-care (01) | DRG 560 ==
LOC: N.LDOUT 12:59 → N.LD 13:10 → N.ICU 04-04 02:57 → N.OB 04-07 10:58
PROVIDERS: ADMIT Obstetrics & Gynecology; ATTEND Obstetrics & Gynecology